=== PATIENT | female | born 1965 | race Caucasian/White ===

== ENCOUNTER 2016-06-02 09:05 | Emergency (ER) | payer MEDICAID ==
[~2016-06-02] VITALS: Wt 74.0 kg
[~2016-06-02 09:05] MED LIST: ACYC800T PO; ACYC800T57 PO; ATEN50TA PO; CARB15DR48 RIGHT EAR; IBUP-1542 PO; MINE3.5O31 RIGHT EYE; PRED20TA PO; PRED50TA PO; UDROBDM PO
[2016-06-02] MEDS ORDERED: ALBUTEROL 0.5% (NEB) 2.5 MG/0.5 ML AMP NEB STA (10:00)
[2016-06-02] MEDS ORDERED: IPRATROPIUM (NEB) 0.5 MG/2.5 ML AMP NEB STA (10:00)
--- NOTE | 2016-06-02 10:29 | RADRPT ---
PROCEDURE: XR Chest. CLINICAL INDICATION: Cough TECHNIQUE: Single frontal view of the chest. COMPARISON: No priorchest radiograph. FINDINGS: The lungs are clear. No pleural effusion or pneumothorax. Heart size is mildly enlarged. No acute osseous abnormalities. Vascular calcifications of the aorta are present compatible with atherosclerosis. IMPRESSION: No acute infiltrates. RPTAT: AADD .Quentin Benavides MD, MD Date Time Electronically viewed and signed by .Quentin Benavides MD, on 06/02/2016 10:28 .B/
--- NOTE | 2016-06-02 10:57 | ERD ---
ER Documentation Chief Complaint Date/Time DATE: 06/02/16 TIME: 10:57 Chief Complaint cough and congestion for the past few days. HPI This is a 50-year-old female who presents to the emergency department today with cough and congestion for the past couple of days. Patient states that she' s also had a fever. States yesterday she vomited. States that she would also like a refill on her blood pressure medication as she does not have a primary care doctor. Denies any diarrhea, chest pain or shortness of breath ROS All systems reviewed and are negative except as per history of present illness. Medications Home Meds Active Scripts Atenolol* (Atenolol*) 50 Mg Tablet, 50 MG PO BID, #60 TAB Prov:CORIN VINCENT PA-C 06/02/16 Ondansetron Hcl* (Zofran*) 4 Mg Tablet, 4 MG PO Q6H for NAUSEA AND/OR VOMITING, #30 TAB Prov:CORIN VINCENT PA-C 06/02/16 Albuterol Sulfate* (Proair HFA*) 8.5 Gm Hfa.aer.ad, 2 PUFF INH Q4, #1 INHALER Prov:CORIN VINCENT PA-C 06/02/16 Guaifenesin-Dextromethorphan* (Robitussin* DM) 100MG/10MG/5ML Syrup, 10 ML PO Q4H Y for COUGH for 7 Days, ML Prov:CORIN VINCENT PA-C 06/02/16 Acetaminophen* (Tylophen*) 500 Mg Capsule, 1 CAP PO Q6H Y for PAIN AND OR ELEVATED TEMP, #30 CAP Prov:CORIN VINCENT PA-C 06/02/16 Ibuprofen* (Motrin*) 600 Mg Tab, 600 MG PO Q6, #30 TAB Prov:CORIN VINCENT PA-C 06/02/16 Guaifenesin-Dextromethorphan* (Robitussin* DM) 100MG/10MG/5ML Syrup, 5 ML PO Q4H Y for COUGH, #100 ML Prov:MOISES OBRIEN PA-C 04/27/16 Carbamide Peroxide* (Debrox*) 6.5% - 15 Ml Drops, 10 DROP RIGHT EAR BID, #1 BOTTLE Prov:MOISES OBRIEN PA-C 04/27/16 Ibuprofen* (Motrin*) 600 Mg Tab, 600 MG PO Q6, #20 TAB Prov:ESA ARELLANO MD 04/25/16 Acyclovir* (Zovirax*) 800 Mg Tablet, 800 MG PO TID for 5 Days, TAB Prov:ESA ARELLANO MD 04/25/16 Prednisone* (Prednisone*) 20 Mg Tab, 40 MG PO DAILY for 5 Days, TAB Start April 26, 2016 Prov:ESA ARELLANO MD 04/25/16 Artificial Tears* (Akwa Oint*) 3.5 Gm Oint, 1 APPLIC RIGHT EYE AC MEALS AND BEDTIME, #1 TUB Prov:GARRETTBELÉNSORAIDA MATTHEWS 04/21/16 Prednisone* (Prednisone*) 50 Mg Tablet, 50 MG PO DAILY, #5 TAB Prov:GARRETTBELÉN DO 04/21/16 Acyclovir* (Acyclovir*) 800 Mg Tablet, 800 MG PO 5 TIMES DAILY for 7 Days, TAB Prov:GARRETTBELÉN DO 04/21/16 Atenolol* (Atenolol*) 50 Mg Tablet, 50 MG PO BID, #60 TAB Prov:BELÉN TUCKER 04/21/16 Reported Medications Atenolol* (Atenolol*) 50 Mg Tablet, 50 MG PO QHS, #30 TAB 04/20/16 Allergies Allergies: Coded Allergies: No Known Allergy (Unverified , 04/20/16) PMhx/Soc History of Surgery: Yes ( X20 yrs ago) Anesthesia Reaction: No Hx Neurological Disorder: No Hx Respiratory Disorders: No Hx Cardiac Disorders: Yes (HYPERTENSION ) Hx Psychiatric Problems: No Hx Miscellaneous Medical Probl: Yes (GASTRITIS, BELLS PALSY 03/29) Hx Alcohol Use: No Hx Substance Use: No Hx Tobacco Use: No Physical Exam Vitals Vital Signs Date Time Temp Pulse Resp B/P Pulse Ox O2 Delivery O2 Flow Rate FiO2 06/02/16 10:33 88 22 95 21 06/02/16 09:13 99.5 90 22 154/91 94 Physical Exam Const: No acute distress Head: Atraumatic Eyes: Normal Conjunctiva ENT: Ears TMs normal. Nose no drainage. Throat no erythema no exudate. Neck: Full range of motion..~ No meningismus. Resp: Clear to auscultation bilaterally. No absent breath sounds. No wheezing. Cardio: Regular rate and rhythm, no murmurs Abd: Soft, non tender, non distended. Normal bowel sounds Skin: No petechiae or rashes Neur: Awake and alert Psych: Normal Mood and Affect Results 24 hrs Current Medications Medications (Trade) Dose Ordered Sig/Daroí Route PRN Reason Start Time Stop Time Status Last Admin Dose Admin Albuterol (Proventil 0.5% (Neb)) 5 mg ONCE STAT NEB 06/02/16 10:00 06/02/16 10:02 DC 06/02/16 10:32 Ipratropium [place] (Atrovent 0.02% (Neb)) 1.5 mg ONCE STAT NEB 06/02/16 10:00 06/02/16 10:02 DC 06/02/16 10:32 DIAGNOSTIC IMAGING REPORT Patient: DORA OLVERA : 1965 Age: 50 Sex: F MR #: [id number] DOS: 06/02/16 1000 Ordering MD: CORIN VINCENT PA-C Location: [facility] Room/Bed: PROCEDURE: XR Chest. CLINICAL INDICATION: Cough TECHNIQUE: Single frontal view of the chest. COMPARISON: No priorchest radiograph. FINDINGS: The lungs are clear. No pleural effusion or pneumothorax. Heart size is mildly enlarged. No acute osseous abnormalities. Vascular calcifications of the aorta are present compatible with atherosclerosis. IMPRESSION: No acute infiltrates. RPTAT: AADD .Quentin Benavides MD, MD Date Time Electronically viewed and signed by .Quentin Benavides MD, on 06/02/2016 10:28 .B/ CC: CORIN VINCENT PA-C Procedures/MDM This is a 50-year-old female who presents to the emergency department today complaining of fever, cough and congestion for the past couple of days. She did have 1 bout of vomiting. Patient was coughing persistently in the exam room and her oxygen saturation is 94%. She is afebrile however I did obtain a chest x- ray given her oxygen saturation and persistent cough. Chest x-ray shows no acute infiltrates. Low suspicion for PE, abscess, pneumothorax. He was given a breathing treatment here in the emergency department and symptoms improved. Oxygen saturation improved. Symptoms at this time consistent with URI versus influenza-like symptoms versus other viral URI. I have low suspicion for strep pharyngitis, peritonsillar abscess, retropharyngeal abscess, otitis media, PNA, sinusitis, abscess, meningitis, sepsis, or other acute infectious bacterial process. She has had symptoms for a couple of days and it is not felt the patient would benefit from Tamiflu. I will treat her symptoms at this time. She is given Tylenol, Motrin, Robitussin, Prozac, Zofran. She was also given a refill on her atenolol. Her blood pressure slightly elevated at 154/91. I do not fill the patient requires further workup or imaging. At this time the patient is stable for discharge and outpatient management. They should follow up with their PCP in the next 1-2. They may return to the emergency department sooner if symptoms persist or worsen. Patient understood and agreed with the plan. Departure Diagnosis: Primary Impression: Cough Condition: CORIN Calvillo PA-C Jun 02, 2016 10:57
[2016-06-02] MEDS ORDERED: IBUP-1542 PO (11:08)
[2016-06-02] MEDS ORDERED: ALBU8.5H3 INH (11:09)
[2016-06-02] MEDS ORDERED: UDROBDM PO (11:09)
[2016-06-02] MEDS ORDERED: ACET500C5 PO (11:09)
[2016-06-02] MEDS ORDERED: ATEN50TA PO (11:10)
[2016-06-02] MEDS ORDERED: ONDA4TAB8 PO (11:10)
[2016-06-02 11:21] VITALS: BP 136/70; PULSE 68; RESP 22; TEMP 99
== END 2016-06-02 11:20 | disposition home or self-care (01) ==
LOC: FTE 09:05
DX: R05 Cough (principal); I10 Essential (primary) hypertension
CPT/HCPCS: 71010; 94664; Z7502; Z7610

== ENCOUNTER 2016-06-07 17:14 | Emergency (ER) | payer MEDICAID ==
[~2016-06-07] VITALS: Wt 105.0 kg
[~2016-06-07 17:14] MED LIST changes: +ACET500C5 PO; +ALBU8.5H3 INH; +ONDA4TAB8 PO
[2016-06-07] MEDS ORDERED: IBUP400T22 PO (18:43)
[2016-06-07] MEDS ORDERED: ALBU8.5H3 INH (18:43)
[2016-06-07] MEDS ORDERED: ACET500C5 PO (18:43)
[2016-06-07] MEDS ORDERED: GUAI473L22 PO (18:43)
[2016-06-07] MEDS ORDERED: CETI10CA PO (18:43)
--- NOTE | 2016-06-07 18:48 | ERD ---
ER Documentation Chief Complaint Date/Time DATE: 06/07/16 TIME: 18:45 Chief Complaint COUGH AND CONGESTION FOR THE PAST 5 days HPI 50-year-old female presents here in emergency department for complaints of cough and congestion for 5 days, has been having on having on and off wheezing at night. Patient had also runny nose nasal congestion started 3 weeks ago, it got better, started to have wheezing cough and congestion for the last 5 days. Patient does not have any fever or chills. Patient denies any chest pain or palpitations. Patient did not take any medications to help with symptoms. Patient denies any dyspnea on exertion or dyspnea on lying down. Patient denies any sick contacts. ROS All systems reviewed and are negative except as per history of present illness. Medications Home Meds Active Scripts Acetaminophen* (Tylophen*) 500 Mg Capsule, 1 CAP PO Q6H Y for PAIN AND OR ELEVATED TEMP, #20 CAP Prov:JITENDRA SAPP NP 06/07/16 Albuterol Sulfate* (Proair HFA*) 8.5 Gm Hfa.aer.ad, 2 PUFF INH Q4H Y for WHEEZING AND SOB, #1 INHALER Prov:JITENDRA SAPP NP 06/07/16 Ibuprofen* (Motrin*) 400 Mg Tab, 400 MG PO Q6H Y for PAIN AND OR ELEVATED TEMP, #30 TAB Prov:JITENDRA SAPP NP 06/07/16 Cetirizine Hcl* (Zyrtec*) 10 Mg Capsule, 10 MG PO DAILY, #30 TAB.CHEW Prov:JITENDRA SAPP NP 06/07/16 Guaifenesin-Codeine Phosphate* (Guaifenesin* AC Cough Syrup) 473 Ml Liquid, 10 ML PO Q4H Y for COUGH, #120 ML Prov:JITENDRA SAPP NP 06/07/16 Atenolol* (Atenolol*) 50 Mg Tablet, 50 MG PO BID, #60 TAB Prov:CORIN VINCENT PA-C 06/02/16 Ondansetron Hcl* (Zofran*) 4 Mg Tablet, 4 MG PO Q6H for NAUSEA AND/OR VOMITING, #30 TAB Prov:CORIN VINCENT PA-C 06/02/16 Albuterol Sulfate* (Proair HFA*) 8.5 Gm Hfa.aer.ad, 2 PUFF INH Q4, #1 INHALER Prov:CORIN VINCENTC 06/02/16 Guaifenesin-Dextromethorphan* (Robitussin* DM) 100MG/10MG/5ML Syrup, 10 ML PO Q4H Y for COUGH for 7 Days, ML Prov:CORIN VINCENTC 06/02/16 Acetaminophen* (Tylophen*) 500 Mg Capsule, 1 CAP PO Q6H Y for PAIN AND OR ELEVATED TEMP, #30 CAP Prov:CORIN VINCENT PA-C 06/02/16 Ibuprofen* (Motrin*) 600 Mg Tab, 600 MG PO Q6, #30 TAB Prov:CORIN VINCENTC 06/02/16 Guaifenesin-Dextromethorphan* (Robitussin* DM) 100MG/10MG/5ML Syrup, 5 ML PO Q4H Y for COUGH, #100 ML Prov:MOISES OBRIEN PA-C 04/27/16 Carbamide Peroxide* (Debrox*) 6.5% - 15 Ml Drops, 10 DROP RIGHT EAR BID, #1 BOTTLE Prov:MOISES OBRIEN PA-C 04/27/16 Ibuprofen* (Motrin*) 600 Mg Tab, 600 MG PO Q6, #20 TAB Prov:ESA ARELLANO MD 04/25/16 Acyclovir* (Zovirax*) 800 Mg Tablet, 800 MG PO TID for 5 Days, TAB Prov:ESA ARELLANO MD 04/25/16 Prednisone* (Prednisone*) 20 Mg Tab, 40 MG PO DAILY for 5 Days, TAB Start April 26, 2016 Prov:ESA ARELLANO MD 04/25/16 Artificial Tears* (Akwa Oint*) 3.5 Gm Oint, 1 APPLIC RIGHT EYE AC MEALS AND BEDTIME, #1 TUB Prov:BELÉN TUCKER DO 04/21/16 Prednisone* (Prednisone*) 50 Mg Tablet, 50 MG PO DAILY, #5 TAB Prov:BELÉN TUCKER DO 04/21/16 Acyclovir* (Acyclovir*) 800 Mg Tablet, 800 MG PO 5 TIMES DAILY for 7 Days, TAB Prov:BELÉN TUCKER DO 04/21/16 Atenolol* (Atenolol*) 50 Mg Tablet, 50 MG PO BID, #60 TAB Prov:BELÉN TUCKER DO 04/21/16 Reported Medications Atenolol* (Atenolol*) 50 Mg Tablet, 50 MG PO QHS, #30 TAB 04/20/16 Allergies Allergies: Coded Allergies: No Known Allergy (Unverified , 04/20/16) PMhx/Soc History of Surgery: Yes ( X20 yrs ago) Anesthesia Reaction: No Hx Neurological Disorder: No Hx Respiratory Disorders: No Hx Cardiac Disorders: Yes (HYPERTENSION ) Hx Psychiatric Problems: No Hx Miscellaneous Medical Probl: Yes (GASTRITIS, 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 HEENT: Atraumatic. Ears: Normal tympanic membrane, no erythema or bulging. No ear canal swelling. No ear discharge. Nose: Erythematous nasal turbinates with clear nasal discharge. Throat: oropharynx erythematous with postnasal drip. No tonsillar swelling or tonsillar exudates. No lymphadenopathy. CHEST: Clear to auscultation bilaterally. There are no rales, wheezes or rhonchi. HEART: Regular rate and rhythm. No murmurs, clicks, rubs or gallops. No S3 or S4. ABDOMEN: Soft, nontender and nondistended. Good bowel sounds. No rebound or guarding. No gross peritonitis. No gross organomegaly or masses. No Petty sign or McBurney point tenderness. BACK: No midline or flank tenderness. EXTREMITIES: Equal pulses bilaterally. There is no peripheral clubbing, cyanosis or edema. No focal swelling or erythema. Full range of motion. Grossly neurovascularly intact. NEURO: Alert and oriented. Cranial nerves 2-12 intact. Motor strength in all 4 extremities with 5/5 strength. Sensation grossly intact. Normal speech and gait. SKIN: There is no apparent rash or petechia. The skin is warm and dry. HEMATOLOGIC AND LYMPHATIC: There is no evidence of excessive bruising or lymphedema. No gross cervical, axillary, or inguinal lymphadenopathy. Procedures/MDM Medical Decision Making: Patient symptoms are most likely consistent with acute bronchitis, which viral in origin. There is low suspicion for Pneumonia at this time since patients lungs sounds are clear, patient O2 saturation is normal and patient doesnt show any respiratory distress. Radiology exam is not indicated at this time. There is low suspicion for other cardiopulmonary emergencies at this time such as CHF, Pulmonary Embolism, Pneumothorax, Aortic Aneurysm or any other cardiopulmonary emergencies at this time. There is low suspicion for sepsis. Patient appears well and is hemodynamically stable. Fever is controlled with medicines. At this time, patient is not wheezing, patient does not have any fever at this time. Disposition: Home. Condition: Stable Prescriptions: Albuterol, guaifenesin with codeine, Zyrtec, ibuprofen, Tylenol Instructions: Patient is advised to take medications as prescribed. Patient is advised to rest. Patient advised to increase fluid intake, do humidifier at home and if possible, do salt water gargles. Patient is advised that if symptoms are worse, shortness of breath, uncontrolled fever, stridor, vomiting, worst signs and symptoms to return to emergency department immediately. Otherwise, patient is advised to follow up with primary doctor in 5-7 days. Departure Diagnosis: Primary Impression: Acute bronchitis Bronchitis organism: unspecified organism Qualified Code: J20.9 - Acute bronchitis, unspecified organism Condition: Stable Patient Instructions: Bronchitis With Wheezing (Adult) JITENDRA SAPP NP Jun 07, 2016 18:48
== END 2016-06-07 18:48 | disposition home or self-care (01) ==
LOC: E/R 17:14
DX: J20.9 Acute bronchitis, unspecified (principal); I10 Essential (primary) hypertension
CPT/HCPCS: 99283

== ENCOUNTER 2016-06-29 11:35 | Emergency (ER) | payer SELFPAY ==
[~2016-06-29] VITALS: Wt 94.5 kg
[~2016-06-29 11:35] MED LIST changes: +CETI10CA PO; +GUAI473L22 PO; +IBUP400T22 PO
[2016-06-29] MEDS ORDERED: AZIT250T94 PO (12:16)
[2016-06-29] MEDS ORDERED: BENZ100C70 PO (12:17)
[2016-06-29] MEDS ORDERED: CETI10CA PO (12:18)
--- NOTE | 2016-06-29 12:24 | ERD ---
ER Documentation Chief Complaint Date/Time DATE: 06/29/16 TIME: 12:19 Chief Complaint cough, congestion, sore throat and sob at nighttime HPI Is a 51-year-old female who presents the emergency department today complaining of cough. Patient has a cough for the past several weeks. 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 States she has taken multiple nadr-vaq-gjmujrr medications. Has been seen here twice before. Denies any fevers or chills. ROS All systems reviewed and are negative except as per history of present illness. Medications Home Meds Active Scripts Cetirizine Hcl* (Zyrtec*) 10 Mg Capsule, 10 MG PO DAILY, #14 TAB.CHEW Prov:CORIN VINCENT PA-C 06/29/16 Benzonatate* (Tessalon Perle*) 100 Mg Capsule, 100 MG PO Q8H Y for COUGH for 10 Days, CAP Prov:CORIN VINCENT PA-C 06/29/16 Azithromycin* (Zithromax*) 250 Mg Tablet, 250 MG PO .SuzettePACK DIRECTED, #6 TAB TAKE 500 MG (2 TABS) THE FIRST DAY THEN 250 MG (1 TAB) DAYS 2-5 Prov:CORIN VINCENT PA-C 06/29/16 Acetaminophen* (Tylophen*) 500 Mg Capsule, 1 CAP PO Q6H Y for PAIN AND OR ELEVATED TEMP, #20 CAP Prov:JITENDRA SAPP NP 06/07/16 Albuterol Sulfate* (Proair HFA*) 8.5 Gm Hfa.aer.ad, 2 PUFF INH Q4H Y for WHEEZING AND SOB, #1 INHALER Prov:JITENDRA SAPP NP 06/07/16 Ibuprofen* (Motrin*) 400 Mg Tab, 400 MG PO Q6H Y for PAIN AND OR ELEVATED TEMP, #30 TAB Prov:JITENDRA SAPP NP 06/07/16 Cetirizine Hcl* (Zyrtec*) 10 Mg Capsule, 10 MG PO DAILY, #30 TAB.CHEW Prov:JITENDRA SAPP NP 06/07/16 Guaifenesin-Codeine Phosphate* (Guaifenesin* AC Cough Syrup) 473 Ml Liquid, 10 ML PO Q4H Y for COUGH, #120 ML Prov:JITENDRA SAPP APPLICATIONS MANAGER 06/07/16 Atenolol* (Atenolol*) 50 Mg Tablet, 50 MG PO BID, #60 TAB Prov:CORIN VINCENTC 06/02/16 Ondansetron Hcl* (Zofran*) 4 Mg Tablet, 4 MG PO Q6H for NAUSEA AND/OR VOMITING, #30 TAB Prov:CORIN VINCENTC 06/02/16 Albuterol Sulfate* (Proair HFA*) 8.5 Gm Hfa.aer.ad, 2 PUFF INH Q4, #1 INHALER Prov:CORIN VINCENT PA-C 06/02/16 Guaifenesin-Dextromethorphan* (Robitussin* DM) 100MG/10MG/5ML Syrup, 10 ML PO Q4H Y for COUGH for 7 Days, ML Prov:CORIN VINCENT PA-C 06/02/16 Acetaminophen* (Tylophen*) 500 Mg Capsule, 1 CAP PO Q6H Y for PAIN AND OR ELEVATED TEMP, #30 CAP Prov:CORIN VINCENT PA-C 06/02/16 Ibuprofen* (Motrin*) 600 Mg Tab, 600 MG PO Q6, #30 TAB Prov:CORIN VINCENTC 06/02/16 Guaifenesin-Dextromethorphan* (Robitussin* DM) 100MG/10MG/5ML Syrup, 5 ML PO Q4H Y for COUGH, #100 ML Prov:MOISES OBRIEN PA-C 04/27/16 Carbamide Peroxide* (Debrox*) 6.5% - 15 Ml Drops, 10 DROP RIGHT EAR BID, #1 BOTTLE Prov:MOISES OBRIEN PA-C 04/27/16 Ibuprofen* (Motrin*) 600 Mg Tab, 600 MG PO Q6, #20 TAB Prov:ESA ARELLANO MD 04/25/16 Acyclovir* (Zovirax*) 800 Mg Tablet, 800 MG PO TID for 5 Days, TAB Prov:ESA ARELLAON MD 04/25/16 Prednisone* (Prednisone*) 20 Mg Tab, 40 MG PO DAILY for 5 Days, TAB Start April 26, 2016 Prov:ESA ARELLANO MD 04/25/16 Artificial Tears* (Akwa Oint*) 3.5 Gm Oint, 1 APPLIC RIGHT EYE AC MEALS AND BEDTIME, #1 TUB Prov:BELÉN TUCKER DO 04/21/16 Prednisone* (Prednisone*) 50 Mg Tablet, 50 MG PO DAILY, #5 TAB Prov:BELÉN TUCKER DO 04/21/16 Acyclovir* (Acyclovir*) 800 Mg Tablet, 800 MG PO 5 TIMES DAILY for 7 Days, TAB Prov:BELÉN TUCKER DO 04/21/16 Atenolol* (Atenolol*) 50 Mg Tablet, 50 MG PO BID, #60 TAB Prov:BELÉN TUCKER DO 04/21/16 Reported Medications Atenolol* (Atenolol*) 50 Mg Tablet, 50 MG PO QHS, #30 TAB 04/20/16 Allergies Allergies: Coded Allergies: No Known Allergy (Unverified , 06/29/16) PMhx/Soc History of Surgery: Yes ( X20 yrs ago) Anesthesia Reaction: No Hx Neurological Disorder: No Hx Respiratory Disorders: No Hx Cardiac Disorders: Yes (HYPERTENSION ) Hx Psychiatric Problems: No Hx Miscellaneous Medical Probl: Yes (GASTRITIS, BELLS PALSY 03/29) Hx Alcohol Use: No Hx Substance Use: No Hx Tobacco Use: No Smoking Status: Never smoker Physical Exam Vitals Vital Signs Date Time Temp Pulse Resp B/P Pulse Ox O2 Delivery O2 Flow Rate FiO2 06/29/16 11:36 98.7 81 20 178/84 96 Physical Exam Const: No acute distress Head: Atraumatic Eyes: Normal Conjunctiva ENT: Normal External Ears, Nose and right-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 Resp: Clear to auscultation bilaterally. No absent breath sounds. No wheezing. Cardio: Regular rate and rhythm, no murmurs Abd: Soft, non tender, non distended. Normal bowel sounds Skin: No petechiae or rashes Back: No midline or flank tenderness Ext: No cyanosis, or edema Neur: Awake and alert Psych: Normal Mood and Affect Procedures/MDM This 51-year-old female who presents to the emergency department today complaining of a persistent cough. Patient was initially seen by myself on June 02 and had a chest x-ray at that time. There is no evidence of acute bacterial infection. Patient did have some mildly enlarged heart size. There is also vascular calcifications of the aorta present compatible with atherosclerosis. There is no pleural effusion or pneumothorax. 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 Today on physical exam patient is afebrile and otherwise well-appearing. Her oxygen saturation is 96%. She has no wheezing on physical exam. I do not feel that she requires a repeat chest x-ray or laboratory work at this time. I do not feel that she requires a breathing treatment. Patient's symptoms may be related to acute bronchitis versus pertussis. Patient's cough might also be related to possible CHF. Patient has not yet had a prescription of azithromycin and she will be given a prescription for that today as well as Zyrtec and Tessalon Perles. . I have low suspicion for strep pharyngitis, peritonsillar abscess, retropharyngeal abscess, otitis media, PNA, sinusitis, abscess, meningitis, sepsis, or other acute infectious bacterial process. At this time the patient is stable for discharge and outpatient management. They should follow up with their PCP in the next 1-2. They may return to the emergency department sooner if symptoms persist or worsen. Patient understood and agreed with the plan. I discussed the patient with Dr. Roach and he is in agreement with the plan. Departure Diagnosis: Primary Impression: Cough Condition: Fair Patient Instructions: Cough, Chronic, Uncertain Cause, (Adult) [facility]errals[facility] Usted se morrison hecho un examen mdico de control que le indica que no est en gil condicin que requiera tratamiento urgente en el Departamento de Emergencia. Un estudio ms profundo y el tratamiento de phillip condicin pueden esperar sin ningn riesgo hasta que usted sea atendida/o en el consultorio de phillip mdico o gil cl alexus. Es responsabilidad suya arreglar gil meliton para el seguimiento del krista. MANEJO DE CONDICIONES NO URGENTES EN EL FUTURO 1) Si usted tiene un mdico de atencin primaria: Usted debera llamar a phillip mdico de atencin primaria antes de venir al departamento de emergencia. Despus de las horas de consultorio, phillip doctor o phillip asociado/a est disponible por telfono. El mdico o enfermero de matilde en el servicio telefnico puede asesorarle por hilda medio para atender el problema, o krista contrario se puede programar gil meliton. 2) Si usted no tiene un mdico de atencin primaria: Llame al mdico o clnica de referencia que aparece abajo olivier las horas de consultorio para hacer gil meliton para que le vean. CLINICAS: [facility] [phone] [facility] [facility] [phone] [facility]. [facility] [phone] [facility] [place] [id number] [phone] [facility] [place] [id number] [phone] [facility]. [phone] [address] Additional Instructions: Call your primary care doctor TOMORROW for an appointment during the next 1-2 days.See the doctor sooner or return here if your condition worsens before your appointment time. Take antibiotics as prescribed Take Zyrtec as prescribed Take Tessalon Perles or Robitussin as needed for cough CORIN VINCENT PA-C Jun 29, 2016 12:24
== END 2016-06-29 12:38 | disposition home or self-care (01) ==
LOC: FTE 11:35
DX: R05 Cough (principal); I10 Essential (primary) hypertension
CPT/HCPCS: 99284